=== PATIENT | female | born 1960 | race Caucasian/White ===

== ENCOUNTER 2021-05-05 08:26 | Emergency (ER) | payer OTHER ==
[~2021-05-05] VITALS: Ht 162.6 cm; Wt 102.1 kg
[2021-05-05] MEDS ORDERED: PRILOSEC OTC20 MG PO (08:41)
[2021-05-05] MEDS ORDERED: ZYRTEC10 MG PO (08:41)
[2021-05-05] MEDS ORDERED: ASA81BEC PO (08:41)
[2021-05-05] MEDS ORDERED: SIMVASTATIN40 MG PO (08:42)
[2021-05-05] MEDS ORDERED: ESTRACE0.5 MG PO (08:42)
[2021-05-05] MEDS ORDERED: VALSARTAN-HCTZ1 EACH PO (08:42)
[2021-05-05] MEDS ORDERED: ESTRADIOL1 EAC2 TOP (08:43)
[2021-05-05 10:28] VITALS: BP 138/77
== END 2021-05-05 10:29 | disposition home or self-care (01) ==
LOC: M.ERS 08:26
DX: S83.421A Sprain of lateral collateral ligament of right knee, initial encounter (principal); I10 Essential (primary) hypertension; E78.00 Pure hypercholesterolemia, unspecified; Z79.82 Long term (current) use of aspirin; Z79.891 Long term (current) use of opiate analgesic; Z79.899 Other long term (current) drug therapy; W22.8XXA Striking against or struck by other objects, initial encounter; Y93.89 Activity, other specified; Y92.89 Other specified places as the place of occurrence of the external cause; Y99.8 Other external cause status